=== PATIENT | female | born 1990 ===

== ENCOUNTER 2018-03-31 10:15 | Emergency (ER) | payer OTHER ==
--- NOTE | 2018-03-31 11:29 | UC ---
Respiratory Complaint HPI - HPI Summary HPI Summary: 28 y/o female presents to the urgent care c/o headache, nasal congestion, sinus pressure w/ yellowish discharge for the past 2 days. Pt reports she has been w/ a dry cough and URI for the past 20 days. 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 She has had fevers of 103- 104. CALLAHAN is 8/ 10 w/o any photophobia or dizziness, nausea or vomiting. Pt thinks Z-pito is not working since she had fever this morning and now she has a white vaginal discharge w/ a lot of itchiness. Pt denies SOB, chest pain, abdominal pain, N/v/ D. No Hx of STD's - History of Current Complaint Chief Complaint: UCHeadache Stated Complaint: HEADACHE COUGH Time Seen by Provider: 03/31/18 11:07 Hx Obtained From: Patient Hx Last Menstrual Period: impl ?: No Onset/Duration: Gradual Onset, Lasting Weeks - 3 weeks, Still Present, Worse Since - 2 days Timing: Intermittent Episodes Severity Initially: Moderate Severity Currently: Moderate Pain Intensity: 8 Pain Scale Used: 0-10 Numeric Character: Cough: Nonproductive Aggravating Factors: Recumbent Position Alleviating Factors: Nothing Associated Signs And Symptoms: Positive: Fever, Chills, URI, Nasal Congestion - yellowish, Sinus Discomfort - Risk Factors Pulmonary Embolism Risk Factors: Negative Cardiac Risk Factors: Negative Pseudomonas Risk Factors: Negative Tuberculosis Risk Factors: Negative - Allergies/Home Medications Allergies/Adverse Reactions: Allergies Allergy/AdvReac Type Severity Reaction Status Date / Time No Known Allergies Allergy Verified 03/31/18 10:38 PMH/Surg Hx/FS Hx/Imm Hx Previously Healthy: Yes - Pt denies PMHX - Surgical History Surgical History: None - Family History Known Family History: Positive: None - Pt denies FMHX - Social History Occupation: Employed Full-time Lives: With Family Alcohol Use: None Substance Use Type: None Smoking Status (MU): Never Smoked Tobacco Review of Systems Constitutional: Fever Skin: Negative Eyes: Negative ENT: Nasal Discharge, Sinus Congestion, Sinus Pain/Tenderness Respiratory: Cough Cardiovascular: Negative Gastrointestinal: Negative Genitourinary: Vaginal/Penile Discharge, Other - vaginal itchiness Motor: Negative Neurovascular: Negative Musculoskeletal: Negative Neurological: Headache Psychological: Negative Is Patient Immunocompromised?: No All Other Systems Reviewed And Are Negative: Yes Physical Exam - Summary Physical Exam Summary: Vital signs: reviewed General: well developed, well nourished female sitting in the examining table w /o any acute distress. Head: Normocephalic, no lesions. Eyes: PERRLA, EOM's full, conjunctiva clear, fundi grossly normal. Ears: EAC's clear, TM's normal. Nose: erythematous nasal Mucosa w/ yellowish nasal discharge. +PND, maxially and frontal sinuses tender to percussion Throat: Clear, no exudates, no lesions. Neck: Supple, no masses, no thyromegaly, no bruits. Chest: Lungs clear, no rales, no rhonchi, no wheezes. Heart: RR, no murmurs, no rubs, no gallops. Abdomen: Soft, no tenderness, no masses, BS normal. : Normal, no lesions, no discharge, no hernias noted. Pelvic: I was assisted by Nurse Lorelei.External genitalia within normal limits. There is no lesions there is no masses noted. Speculum exam: The vaginal fernandes are within normal limits w/ a white cottage cheese vaginal discharge, no the lesions or rashes. The cervix is closed with no lesions or masses. There is no CMT's, and no adnexal masses. Sample sent to Lab for G/C and Affirm panel. Rectal: No lesions, no hemorrhoids, Back: Normal curvature, no tenderness. Extremities: FROM, no deformities, no edema, no erythema. Neuro: Physiological, no localizing findings. Skin: Normal, no rashes, no lesions noted. Triage Information Reviewed: Yes Vital Signs: Initial Vital Signs Temp 98 F 03/31/18 10:32 Pulse 92 03/31/18 10:32 Resp 17 03/31/18 10:32 BP 109/71 03/31/18 10:32 Pulse Ox 100 03/31/18 10:32 UC Diagnostic Evaluation - Laboratory O2 Sat by Pulse Oximetry: 100 Respiratory Course/Dx - Course Course Of Treatment: 28 y/o female presents to the urgent care c/o headache, nasal congestion, sinus pressure w/ yellowish discharge for the past 2 days. Pt reports she has been w/ a dry cough and URI for the past 20 days. She saw PCP 2 days ago and was Rx Z-pito and Acyclovir for Genital Herpes. She has had fevers of 103- 104. CALLAHAN is 8/10 w/o any photophobia or dizziness, nausea or vomiting. Pt thinks Z-pito is not working since she had fevere this morning and now she has a white vaginal discharge w/ a lot of itchiness. Pt denies SOB, chest pain, abdominal pain, N/v/D.Hx obtained. Pt a febrile. Cehst X-ray ordered , Impression: no cardiopulmonary disease observed. Pt Possibly w/ Acute bacterial sinusitis instead of bronchitis.Pt advised to stop Z-pito and Rx Augmenting, Flonase. UA: neagtive, test: negative. Pelvic examination w/ a white cottage cheese vaginal discharge. Possibly Bulbovaginal Candidiasis. Pt Rx Chlotrimazole vaginal cream and fluconazole to take at the end of ABx treatment it she continues w/ ithciness and vaginal discharge. Pelvic samples sent to lab for affirm and GC/chlamydia and trichomonas. Pt will be notified of results. Pt advised to take culturelle to protect GI system. D/C instructions explained. Pt understood and agreed w/ plan of care. - Differential Dx/Diagnosis Differential Diagnosis/HQI/PQRI: Bronchitis, Lower Resp Infection, Sinusitis, Other - pneumonia, BV, dmitriy Provider Diagnoses: 1- Acute bacterial sinusitis. 2-Bulbovaginal Candidiasis. 3- Headache Discharge - Sign-Out/Discharge Documenting (check all that apply): Patient Departure - D/C home - Discharge Plan Condition: Stable Disposition: HOME Prescriptions: Amoxicillin/Clavulanate TAB* [Augmentin TAB 875*] 875 mg PO BID #20 tab Benzonatate CAP* [Tessalon 100 MG CAP*] 100 mg PO TID #21 cap Clotrimazole 1% VAGINAL CREAM* [Gyne-Lotrimin 1% VAGINAL CREAM*] 1 applic VAGINAL DAILY #1 tube Fluconazole 150 MG (NF) [Diflucan 150 mg (NF)] 150 mg PO ONCE #1 tab Fluticasone NASAL SPRAY 50MCG* [Flonase NASAL SPRAY 50MCG*] 2 spray BOTH NARES DAILY #1 btl Ibuprofen TAB* [Motrin TAB* 800 MG] 800 mg PO Q6H PRN #30 tab PRN Reason: Headache Patient Education Materials: Sinusitis (ED), Yeast Infection (ED), Acute Headache (ED) Referrals: [facility] [place] [facility]ERR[facility] [Outside] - 3 Days Additional Instructions: 1- Stop taking Azithromycin PO and Start taking Augmentin PO as directed. take full course of antibiotic to avoid resistance. Increase fluid intake, eat well and rest 2-Use Flonase as directed to help drain fluid. Also buy saline drops to clear sinuses 3-Take Ibuprofen PO q6-8hrs prn after meals for your Headache. 4- Take Tessalon tabs PO to alleviate cough. 5- Use Clotrimazole vaginal cream as directed. At the end of antibiotic treatment take the fluconazole tab PO 6-Return to the clinic or PCP if symptoms do not improve for further management and treatment - Billing Disposition and Condition Condition: STABLE Disposition: Home
--- NOTE | 2018-03-31 12:02 | RAD ---
Indication: Cough, fever. 2 views of the chest demonstrate no mediastinal shift. Heart is of normal size and configuration. Lung wihtney are clear. IMPRESSION: No active cardiopulmonary disease is noted.
[2018-03-31] MEDS ORDERED: Ibuprofen TAB* 400 MG PO ONE (12:10)
== END 2018-03-31 13:01 | disposition home or self-care (01) ==
LOC: UCEAST 10:15
DX: J01.90 Acute sinusitis, unspecified (principal); B37.3 Candidiasis of vulva and vagina; R51 Headache; R50.9 Fever, unspecified; R05 Cough
CPT/HCPCS: 71046; 81003; 84702; 87480; 87491; 87510; 87591; 87661; 99202; A9270-GY; G0463

== ENCOUNTER 2018-04-09 08:49 | Emergency (ER) | payer OTHER ==
--- NOTE | 2018-04-09 09:32 | UC ---
Complaint Female HPI - HPI Summary HPI Summary: PATIENT REPORTS 2 DAYS OF WHITE VAGINAL DISCHARGE, IRRITATION AND ITCHING. HAS BEEN ON AUGMENTIN FOR 4 DAYS. NO URINARY SYMPTOMS. IS CURRENTLY ON MENSES. - History Of Current Complaint Chief Complaint: UCGU Stated Complaint: PERSONAL Time Seen by Provider: 04/09/18 09:11 Hx Obtained From: Patient Hx Last Menstrual Period: 03/30/18 Onset/Duration: Gradual Onset, Lasting Days, Still Present Timing: Constant Severity Initially: Moderate Severity Currently: Moderate Pain Intensity: 0 Pain Scale Used: 0-10 Numeric Aggravating Factor(s): Nothing Alleviating Factor(s): Nothing Associated Signs And Symptoms: Positive: Vaginal Bleeding/Discharge. Negative: Fever, Back Pain, Nausea - Oh - Allergies/Home Medications Allergies/Adverse Reactions: Allergies Allergy/AdvReac Type Severity Reaction Status Date / Time No Known Allergies Allergy Verified 04/09/18 09:00 PMH/Surg Hx/FS Hx/Imm Hx Previously Healthy: Yes - Surgical History Surgical History: None - Family History Known Family History: Positive: None - Pt denies FMHX Negative: Hypertension - Social History Alcohol Use: None Substance Use Type: None Smoking Status (MU): Never Smoked Tobacco Review of Systems Constitutional: Negative Skin: Negative Respiratory: Negative Cardiovascular: Negative Gastrointestinal: Negative Genitourinary: Vaginal/Penile Itching, Vaginal/Penile Discharge All Other Systems Reviewed And Are Negative: Yes Physical Exam Triage Information Reviewed: Yes Appearance: Well-Appearing, No Pain Distress, Well-Nourished Vital Signs: Initial Vital Signs Temp 98 F 04/09/18 08:57 Pulse 104 04/09/18 08:57 Resp 15 04/09/18 08:57 BP 114/74 04/09/18 08:57 Pulse Ox 100 04/09/18 08:57 Vital Signs Reviewed: Yes Eyes: Positive: Conjunctiva Clear ENT: Positive: Hearing grossly normal Neck: Positive: Supple Respiratory: Positive: No respiratory distress, No accessory muscle use Cardiovascular: Positive: Pulses Normal Abdomen Description: Positive: Nontender, Soft. Negative: CVA Tenderness (R), CVA Tenderness (L), Distended, Guarding Musculoskeletal: Positive: No Edema Neurological: Positive: Alert Psychological: Positive: Age Appropriate Behavior Skin: Negative: rashes Complaint Female Dx - Course Course Of Treatment: PT ON MENSES - WILL DEFER PELVIC EXAM AND TX FOR PRESUMPTIVE VULVOVAGINAL CANDIDIASIS BASED ON HISTORY. PT TO F/U WITH PCP IF NOT IMPROVING. - Differential Dx/Diagnosis Provider Diagnoses: VULVOVAGINAL CANDIDIASIS Discharge - Sign-Out/Discharge Documenting (check all that apply): Patient Departure - Discharge Plan Condition: Stable Disposition: HOME Prescriptions: Fluconazole 150 MG (NF) [Diflucan 150 mg (NF)] 150 mg PO ONCE #2 tab Patient Education Materials: Yeast Infection (ED) Referrals: Ruby Gardner MD [Primary Care Provider] - If Needed Additional Instructions: FOLLOW-UP WITH YOUR PCP OR HERE IF YOUR SYMPTOMS ARE NOT IMPROVING EXPECTED. - Billing Disposition and Condition Condition: STABLE Disposition: Home
== END 2018-04-09 09:35 | disposition home or self-care (01) ==
LOC: UCEAST 08:49
DX: B37.3 Candidiasis of vulva and vagina (principal)
CPT/HCPCS: 99212; G0463

== ENCOUNTER 2018-08-05 08:02 | Emergency (ER) | payer OTHER ==
[2018-08-05 08:26] VITALS: BP 118/72
--- NOTE | 2018-08-05 09:20 | UC ---
Complaint Female HPI - HPI Summary HPI Summary: 28 y/o female with h/o yeast infection, treated with diflucan 1 week ago, symptoms resolved however noted increased discharge, itchy, burning w urination x 24 hours. no fever, chills, no abdominal pain. Also c/o L shoulder, lower back pain x 1 week after lifting heavy objects at work. + tingling in L arm at night w sleeping, no decreased function/ weakness , no leg weakness. lower pain across back/ pelvis. no flank pain. 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 Negative : Fever - Allergies/Home Medications Allergies/Adverse Reactions: Allergies Allergy/AdvReac Type Severity Reaction Status Date / Time No Known Allergies Allergy Verified 08/05/18 08:26 PMH/Surg Hx/FS Hx/Imm Hx Previously Healthy: Yes - h/o HPV - Surgical History Surgical History: None - Family History Known Family History: Positive: None - Pt denies FMHX Negative: Hypertension - Social History Alcohol Use: None Substance Use Type: None Smoking Status (MU): Never Smoked Tobacco - Immunization History Most Recent Tetanus Shot: 2017 Review of Systems All Other Systems Reviewed And Are Negative: Yes Constitutional: Positive: Negative Gastrointestinal: Positive: Negative Genitourinary: Positive: Vaginal/Penile Burning, Vaginal/Penile Itching, Vaginal /Penile Discharge. Negative: Dysuria, Frequency, Vaginal/Penile Pain, Vaginal/ Penile Tenderness Is Patient Immunocompromised?: No Physical Exam Triage Information Reviewed: Yes Appearance: Well-Appearing, No Pain Distress, Well-Nourished Vital Signs: Initial Vital Signs Temp 98.1 F 08/05/18 08:19 Pulse 80 08/05/18 08:19 Resp 18 08/05/18 08:19 BP 118/72 08/05/18 08:19 Pulse Ox 99 08/05/18 08:19 Vital Signs Reviewed: Yes Eyes: Positive: Conjunctiva Clear Abdomen Description: Positive: Nontender, No Organomegaly, Soft. Negative: CVA Tenderness (R), CVA Tenderness (L), Distended, Guarding, Peritoneal Signs, Pulsatile Mass, Splenomegaly Pelvic Exam: Positive: External Exam Normal - minimal erythema b/l labia, no wounds, sores, No Cerv. Motion Tender, No Masses, Discharge - yellow/ white milky discharge, Other - friable os. Negative: Active Bleeding, Cervicitis, Tender w/ Cervical Motion, Tender Adnexa, Tender Uterus Musculoskeletal: Positive: Strength Intact, ROM Intact, No Edema, Other: - neg straight leg, TTP over SI b/l, full ROM - L shoulder- TTP over scapular spine, FF to 80 with pain at endpoint. ABD 120, full ext/ int rotation neg speed, zeenat arguello. Neurological Exam: Normal Psychological Exam: Normal Skin Exam: Normal Complaint Female Dx - Course Course Of Treatment: STD testing sent, tx'd for BV, shoulder/ back strain- NSAIDS, UA- - Differential Dx/Diagnosis Differential Diagnosis/HQI/PQRI: Urinary Tract Infection Provider Diagnosis: Bacterial vaginosis, Shoulder strain Discharge - Sign-Out/Discharge Documenting (check all that apply): Patient Departure All imaging exams completed and their final reports reviewed: No Studies - Discharge Plan Condition: Good Disposition: HOME Prescriptions: metroNIDAZOLE [Metronidazole] 500 mg PO BID #14 tablet Naproxen [Naproxen 250 mg tab] 250 mg PO BID #60 tablet Patient Education Materials: Bacterial Vaginosis (ED), Rotator Cuff Injury (ED) , Low Back Strain (ED) Referrals: Ruby Gardner MD [Primary Care Provider] - Additional Instructions: - Avoid sexual activity until completed medication - Avoid heavy lifting, do gentle stretches. - Naproxen twice daily for 5-7 days to decrease swelling - Billing Disposition and Condition Condition: GOOD Disposition: Home
== END 2018-08-05 09:30 | disposition home or self-care (01) ==
LOC: UCEAST 08:02
DX: N76.0 Acute vaginitis (principal); S43.402A Unspecified sprain of left shoulder joint, initial encounter; X50.0XXA Overexertion from strenuous movement or load, initial encounter; Y93.89 Activity, other specified; Y92.89 Other specified places as the place of occurrence of the external cause; Y99.0 Civilian activity done for income or pay
CPT/HCPCS: 81003; 84702; 87480; 87491; 87510; 87591; 99212; G0463

== ENCOUNTER 2018-12-18 00:20 | Emergency (ER) | payer OTHER ==
[2018-12-18] MEDS ORDERED: methylPREDNISolone 125 MG* 2 ML VIAL IV ONE (00:25)
[2018-12-18] MEDS ORDERED: EPINEPHRINE 1 MG/ML 1 ML VIAL IM ONE (00:25)
[2018-12-18] MEDS ORDERED: Famotidine IV* 10 MG/ML 2 ML (20 mg) IV SLOW PU ONE (00:25)
[2018-12-18 01:30] VITALS: BP 124/63
--- NOTE | 2018-12-18 01:37 | ED ---
Allergic Reaction/Systemic - HPI Summary HPI Summary: Patient is a 28 y/o F presenting to ED via EMS with complaints of puffy eyes, diffuse pruritus, SOB. Sx first onset at around 1930 on 12/17 after taking a shower and suddenly exacerbated at 2230. The patient's describes the patient as having developed "tiny red dots". Patient denies Hx of such reactions and Hx of asthma. It is unknown what caused this reaction, patient denies new meds, food, lotions, or detergents. EMS reports noting wheezes, patient was given 50 mg bendaryl and duoneb by EMS. At present, Sx appear to be relieved. On triage, pain is denied. Home medications and allergies are reviewed. - History of Current Complaint Chief Complaint: EDAllergicReaction Time Seen by Provider: 12/18/18 00:26 Hx Obtained From: Patient Hx Last Menstrual Period: yesterday Onset/Duration: Sudden Onset, Started hours ago - onset at 1930, worse 2230, Worse Since Timing: Constant, Lasting Hours - onset at 1930, worse 2230 Severity Currently: None - pain denied Pain Intensity: 0 Pain Scale Used: 0-10 Numeric - 0/10 Location: Diffuse Character: Pruritus Aggravating Factor(s): Nothing Alleviating Factor(s): Antihistamines, Other - bendaryl, duoneb Associated Signs And Symptoms: Positive: Difficulty Breathing, Other: - pruritus , face puffiness - Allergies/Home Medications Allergies/Adverse Reactions: Allergies Allergy/AdvReac Type Severity Reaction Status Date / Time No Known Allergies Allergy Verified 08/05/18 08:26 PMH/Surg Hx/FS Hx/Imm Hx Respiratory History: Denies: Hx Asthma Sensory History: Denies: Hx Legally Blind, Hx Deafness Opthamlomology History: Denies: Hx Legally Blind EENT History: Denies: Hx Deafness Infectious Disease History: No Infectious Disease History: Denies: Traveled Outside the [place] in Last 30 Days - Family History Known Family History: Negative: Hypertension - Social History Alcohol Use: None Substance Use Type: Reports: None Smoking Status (MU): Never Smoked Tobacco Review of Systems Positive: Shortness Of Breath Skin: Other - POSITIVE - PRURITUS, PUFFINESS OF FACE All Other Systems Reviewed And Are Negative: Yes Physical Exam - Summary Physical Exam Summary: Appearance: Well-appearing, Well-nourished, lying in bed comfortably Skin: Warm, dry, no obvious rash Eyes: sclera anicteric, no conjunctival pallor ENT: mucous membranes moist, pharynx appears normal Neck: Supple, nontender Respiratory: Clear to auscultation, no signs of respiratory distress Cardiovascular: Normal S1, S2. No murmurs. Normal distal pulses in tibial and radial bilaterally. Abdomen: Soft, nontender, normal active bowel sounds present Musculoskeletal: Normal, Strength/ROM Intact Neurological: A&Ox3, awake and alert, mentation is normal, speech is fluent and appropriate Psychiatric: affect is normal, does not appear anxious or depressed Triage Information Reviewed: Yes Vital Signs On Initial Exam: Initial Vitals Temp Pulse Resp BP Pulse Ox 98.7 F 80 18 123/72 100 12/18/18 00:25 12/18/18 00:25 12/18/18 00:25 12/18/18 00:25 12/18/18 00:25 Vital Signs Reviewed: Yes Diagnostics - Vital Signs Vital Signs Temp Pulse Resp BP Pulse Ox 12/18/18 00:25 98.7 F 80 18 123/72 100 - Laboratory Lab Statement: Any lab studies that have been ordered have been reviewed, and results considered in the medical decision making process. Re-Evaluation - Re-Evaluation First Eval Re-Evaluation Time: 01:20 Change: Improved Comment: Patient is asymptomatic at this time, she will be discharged to home. She is agreeable with this. Allergic Reaction Course/Dx - Course Course Of Treatment: Patient is a 28 y/o F presenting to ED via EMS with complaints of puffy eyes, diffuse pruritus, SOB. Sx first onset at around 1930 on 12/17 after taking a shower and suddenly exacerbated at 2229. The patient's describes the patient as having developed "tiny red dots". Patient denies Hx of such reactions and Hx of asthma. It is unknown what caused this reaction, patient denies new meds, food, lotions, or detergents. EMS reports noting wheezes, patient was given 50 mg bendaryl and duoneb by EMS. At present, Sx appear to be relieved. Physical exam is unremarkable. During ED course, patient was given solu-medrol 60 mg IV ED OCNE ONE, Pepcid 20 mg IV SLOW PU ED ONCE ONE, adrenalin 1 mg/ml 0.3 mg IM ONCE ONE. Patient is asymptomatic at this time, she will be discharged to home. She is agreeable with this. - Diagnoses Provider Diagnoses: Urticaria Discharge - Sign-Out/Discharge Documenting (check all that apply): Patient Departure - discharge Patient Received Moderate/Deep Sedation with Procedure: No - Discharge Plan Condition: Good Disposition: HOME Patient Education Materials: Urticaria (ED) Referrals: Ruby Gardner MD [Primary Care Provider] - Additional Instructions: The hives might come back. They will generally respond to benadryl or other antihistamines like cetirizine or loratadine. Ask your doctor if you should see a driver service technician or event lighting specialist to have further testing to see what may have set off the reaction. - Billing Disposition and Condition Condition: GOOD Disposition: Home - Attestation Statements Document Initiated by Rolando: Yes Documenting Scribe: ALAN NOEL Provider For Whom Rolando is Documenting (Include Credential): BENEDICTO CEDILLO MD Scribe Attestation: IALAN, scribed for BENEDICTO CEDILLO MD on 12/22/18 at 1848. Scribe Documentation Reviewed: Yes Provider Attestation: The documentation as recorded by the ALAN ortiz accurately reflects the service I personally performed and the decisions made by me, BENEDICTO CEDILLO MD Status of Scribe Document: Viewed
== END 2018-12-18 01:29 | disposition home or self-care (01) ==
LOC: ED 00:20
DX: L50.9 Urticaria, unspecified (principal)
CPT/HCPCS: 96372; 96374; 96375; 99282; J2930